=== PATIENT | male | born 1960 | race Caucasian/White ===

== ENCOUNTER 2016-09-06 11:44 | Inpatient (IN) | payer SELFPAY ==
[~2016-09-06] VITALS: Ht 177.8 cm; Wt 81.6 kg
[2016-09-06 12:06] LABS: POINT-OF-CARE METER ID UU13113778
[2016-09-06 12:26] LABS: HEMATOCRIT 34.4 % (38.0-50.0); MCH 31.6 PG (29.0-34.0); MEAN PLAT.VOLUME 10.1 uM^3 (9.0-12.4); PLATELET COUNT 192 K/uL (156-360); RBC DIS.WIDTH-CV 17.9 % (11.8-14.6); RBC DIS.WIDTH-SD 57.8 % (39-53); WHITE BLOOD COUNT 6.2 K/uL (4.1-10.2)
[2016-09-06 12:40] LABS: CHLORIDE 102 mEq/L (99-109); POTASSIUM 4.9 mEq/L (3.7-5.4); SODIUM 133 mEq/L (136-147)
[2016-09-06 12:41] LABS: GLUCOSE 164 mg/dL (70-99)
[2016-09-06 12:43] LABS: ANION GAP 12 MEQ/L (2-14)
[2016-09-06 12:46] LABS: TROP-I INTERPRETATION POSITIVE; UREA NITROGEN (BUN) 66 mg/dL (9-23)
[2016-09-06 12:50] LABS: GFR ESTIMATE (CALCULATED) 33 mL/min/
[2016-09-06 13:17] LABS: INTER. NORMALIZED RATIO 1.2; PROTHROMBIN TIME 12.6 (9.2-11.2); PTT 29.1 (25-32)
[2016-09-06 13:39] LABS: TOTAL BILIRUBIN 2.2 mg/dL (0.0-1.0)
[2016-09-06 13:40] LABS: ALKALINE PHOSPHATASE 291 IU/L (3-129)
[2016-09-06 13:42] LABS: DIRECT BILIRUBIN 1.6 mg/dL (0.0-0.3)
[2016-09-06 13:43] LABS: LIPASE 81 U/L (1.0-51.0)
[2016-09-06 19:00] VITALS: BP 101/47; BP 84/62
[2016-09-06 19:16] LABS: MAGNESIUM 2.2 mg/dL (1.3-2.7)
[2016-09-06 19:30] VITALS: BP 53/23
[2016-09-06 19:42] LABS: BASE EXCESS -14.4 mEq/L (-3 to +3); BICARBONATE 14.3 mEq/L (22-26); CARBOXY HGB 2.6 % (0-5); METHEMOGLOBIN 1.2 % (0-1.5); PCO2 44 mm Hg (35-45); PO2 156 mm Hg (80-100)
[2016-09-06 19:43] LABS: COMMENTS - BLOOD GASES C+; DEVICE VENTILATOR; FI02 100 %; MECHANICAL RATE 18 resp/min; MODE A/C; PEEP 10 CM/H20; TIDAL VOLUME 480 ML; TOTAL RESP RATE 18 resp/min
[2016-09-06 19:44] LABS: pH 7.12 (7.35-7.45)
[2016-09-06 20:57] LABS: METH RESISTANT S AUREUS PCR NEGATIVE (NEGATIVE)
[2016-09-06 21:00] LABS: PROBE CHECK PASS; SPECIMEN PROCESSING CONTROL PASS
[2016-09-06 21:09] LABS: INTER. NORMALIZED RATIO 1.4; PROTHROMBIN TIME 14.7 (9.2-11.2)
[2016-09-06 21:16] LABS: BASE EXCESS -18.5 mEq/L (-3 to +3); BICARBONATE 11.9 mEq/L (22-26); CARBOXY HGB 2.7 % (0-5); METHEMOGLOBIN 1.3 % (0-1.5); PCO2 46 mm Hg (35-45); PO2 61 mm Hg (80-100)
[2016-09-06 21:17] LABS: COMMENTS - BLOOD GASES C+; DEVICE AMBU BAG; FI02 100 %; O2 FLOW 15 L/MIN; pH 7.02 (7.35-7.45)
[2016-09-06 21:26] LABS: PTT 41.1 (25-32)
[2016-09-06 21:31] LABS: ANION GAP 8 MEQ/L (2-14); CHLORIDE 112 MEQ/L (99-109); GFR ESTIMATE (CALCULATED) 39 mL/min/; GLUCOSE 168 mg/dL (70-99); MAGNESIUM 1.9 mg/dl (1.3-2.7); SAMPLE HEMOLYSIS CHECK 0; SAMPLE ICTERIC CHECK 0; SAMPLE LIPEMIA CHECK 0; SODIUM 133 MEQ/L (136-147); UREA NITROGEN (BUN) 51 mg/dL (9-23)
[2016-09-06 21:37] LABS: TROP-I INTERPRETATION INDETERMINATE; TROPONIN-I 0.55 ng/mL (0.0-0.30)
[2016-09-06 21:53] LABS: EOSINOPHIL (%) 0.8 % (0-5); EOSINOPHIL COUNT 0.1 K/uL (0-0.3); HEMATOCRIT 33.7 % (38.0-50.0); HEMATOLOGY COMMENT 1 SMEAR COMPATIBLE; IMMATURE GRANULOCYTE (%) 3.9 % (0.0-0.7); IMMATURE GRANULOCYTE COUNT 0.5 K/uL; MCH 31.5 PG (29.0-34.0); MCHC 33.2 G/DL (30.0-36.0); MCV 94.9 FL (86-99); MEAN PLAT.VOLUME 10.5 uM^3 (9.0-12.4); MONOCYTE (%) 7.5 % (3-12); MONOCYTE COUNT 0.9 K/uL (0-0.8); NEUTROPHIL (%) 79.1 % (45-76); NEUTROPHIL COUNT 9.1 K/uL (1.8-6.4); PLATELET COUNT 229 K/uL (156-360); RBC DIS.WIDTH-CV 17.9 % (11.8-14.6); RBC DIS.WIDTH-SD 61.9 % (39-53); RED BLOOD COUNT 3.55 M/uL (4.00-5.50)
[2016-09-06 22:03] LABS: WHITE BLOOD COUNT 11.5 K/uL (4.1-10.2)
[2016-09-06 22:44] LABS: ADD MIUA? YES; BILIRUBIN NEGATIVE; BLOOD TRACE; COLOR YELLOW ((YELLOW)); GLUCOSE (STRIP) NEGATIVE; KETONES NEGATIVE; LEUKOCYTES NEGATIVE; NITRITE NEGATIVE; PH, URINE 5.5 (5-8); PROTEIN (STRIP) >=300
[2016-09-06 23:03] LABS: BACTERIA 2+; CASTS PRESENT /LPF; CRYSTALS PRESENT; EPITHELIAL CELLS RARE; FINE GRANULAR CASTS 0-5 /LPF; MUCUS NONE SEEN; RED BLOOD CELLS 0-5 /HPF (0-5); UCUL ADDED? NO; WHITE BLOOD CELLS 0-5 /HPF (0-5)
[2016-09-06 23:04] LABS: AMORPHOUS PHOSPHATE CRYSTALS 3+
[2016-09-06 23:12] LABS: UR CREATININE CONCENTRATION 33.2 MG/DL
[2016-09-06 23:52] LABS: BASE EXCESS -11.1 mEq/L (-3 to +3); BICARBONATE 15.4 mEq/L (22-26); CARBOXY HGB 2.6 % (0-5); COMMENTS - BLOOD GASES C+; DEVICE VENTILATOR; FI02 100 %; MECHANICAL RATE 26 resp/min; METHEMOGLOBIN 1.2 % (0-1.5); MODE A/C; PCO2 36 mm Hg (35-45); PO2 85 mm Hg (80-100)
[2016-09-06 23:53] LABS: PEEP 10 CM/H20; TIDAL VOLUME 480 ML; TOTAL RESP RATE 26 resp/min; pH 7.24 (7.35-7.45)
[2016-09-07 00:17] LABS: GLUCOSE 154 mg/dL (70-99)
[2016-09-07 00:19] LABS: ANION GAP 13 MEQ/L (2-14)
[2016-09-07 00:21] LABS: GFR ESTIMATE (CALCULATED) 37 mL/min/
[2016-09-07 00:22] LABS: UREA NITROGEN (BUN) 57 mg/dL (9-23)
[2016-09-07 00:30] LABS: CHLORIDE 113 mEq/L (99-109); POTASSIUM 5.4 mEq/L (3.7-5.4); SODIUM 140 mEq/L (136-147)
[2016-09-07 03:14] LABS: EOSINOPHIL (%) 0.3 % (0-5); HEMATOCRIT 34.5 % (38.0-50.0); IMMATURE GRANULOCYTE (%) 0.8 % (0.0-0.7); IMMATURE GRANULOCYTE COUNT 1.3 K/uL; MCH 31.6 PG (29.0-34.0); MCHC 34.2 G/DL (30.0-36.0); MCV 92.5 FL (86-99); MEAN PLAT.VOLUME 9.8 uM^3 (9.0-12.4); MONOCYTE (%) 5.1 % (3-12); MONOCYTE COUNT 0.8 K/uL (0-0.8); NEUTROPHIL (%) 86.9 % (45-76); NEUTROPHIL COUNT 13.7 K/uL (1.8-6.4); PLATELET COUNT 194 K/uL (156-360); RBC DIS.WIDTH-CV 17.9 % (11.8-14.6); RBC DIS.WIDTH-SD 58.1 % (39-53); RED BLOOD COUNT 3.73 M/uL (4.00-5.50); WHITE BLOOD COUNT 15.7 K/uL (4.1-10.2)
[2016-09-07] MEDS ORDERED: SPIRONOLACTONE25 MG PO (03:14)
[2016-09-07] MEDS ORDERED: LISINOPRIL5 MG PO (03:15)
[2016-09-07] MEDS ORDERED: FISH OIL PEARL1 EACH PO (03:16)
[2016-09-07] MEDS ORDERED: METFORMIN HCL500 M1 PO (03:17)
[2016-09-07] MEDS ORDERED: ZOCOR40 MG PO (03:18)
[2016-09-07] MEDS ORDERED: LO-DOSE ASPIRIN81 M2 PO (03:18)
[2016-09-07] MEDS ORDERED: GLIPIZIDE5 MG PO (03:19)
[2016-09-07] MEDS ORDERED: COREG12.5 M1 PO (03:19)
[2016-09-07] MEDS ORDERED: K-DUR10 MEQ PO (03:20)
[2016-09-07 03:21] LABS: CHLORIDE 110 mEq/L (99-109); POTASSIUM 4.8 mEq/L (3.7-5.4); SODIUM 139 mEq/L (136-147)
[2016-09-07] MEDS ORDERED: IMDUR30 MG PO (03:21)
[2016-09-07] MEDS ORDERED: FUROSEMIDE80 MG PO (03:21)
[2016-09-07 03:23] LABS: GLUCOSE 177 mg/dL (70-99)
[2016-09-07 03:25] LABS: ANION GAP 11 MEQ/L (2-14)
[2016-09-07 03:27] LABS: GFR ESTIMATE (CALCULATED) 37 mL/min/
[2016-09-07 03:28] LABS: INTER. NORMALIZED RATIO 1.8; PROTHROMBIN TIME 18.4 (9.2-11.2); UREA NITROGEN (BUN) 58 mg/dL (9-23)
[2016-09-07 03:29] LABS: MAGNESIUM 1.5 mg/dL (1.3-2.7)
[2016-09-07 03:34] LABS: TROP-I INTERPRETATION INDETERMINATE; TROPONIN-I 0.59 ng/mL (0.0-0.30)
[2016-09-07 03:58] LABS: PTT > 150.0 (25-32)
== END 2016-09-07 06:49 | disposition short-term general hospital (02) | DRG 270 ==
LOC: EME 11:44 → EDOF 17:24 → 4WEST 18:06
PROVIDERS: Internal Medicine Cardiovascular Disease; Internal Medicine Nephrology; Nurse Practitioner Family
PROC: 5A02210 Assistance with Cardiac Output using Balloon Pump, Continuous (ICD-10-PCS; principal; 2016-09-06)
DX: I46.9 Cardiac arrest, cause unspecified (principal); I50.23 Acute on chronic systolic (congestive) heart failure; I21.4 Non-ST elevation (NSTEMI) myocardial infarction; J96.01 Acute respiratory failure with hypoxia; E87.2 Acidosis; N17.9 Acute kidney failure, unspecified; R40.20 Unspecified coma; J81.1 Chronic pulmonary edema; E86.0 Dehydration; I25.10 Atherosclerotic heart disease of native coronary artery without angina pectoris; I48.91 Unspecified atrial fibrillation; I25.5 Ischemic cardiomyopathy; Z95.1 Presence of aortocoronary bypass graft
CPT/HCPCS: 36600; 36620; 70450; 71010; 71020; 71275; 74177; 80048; 80048 91; 80076; 81003; 82330; 82570; 82803; 82948; 83605; 83690; 83735; 83880; 84100; 84156; 84300; 84484; 85025; 85025 91; 85027; 85610; 85730; 87040; 87070; 87205; 87641; 90832; 92950; 93005; 93306; 94002; 94640; 94640 76; 99202; 99281; 99285; C1769; C1894; J0171; J0461; J1250; J1644; J2250; J2543; J3010; J7030; J7050; S0028